=== PATIENT | female | born 1945 | race Caucasian/White ===

== ENCOUNTER → 2018-10-10 | Outpatient (CLI) | payer MEDICARE ==
--- NOTE | 2018-10-10 23:14 | CONS ---
CONSULTATION DATE OF SERVICE: 10/10/2018 73-year-old lady has been evaluated in [facility] for obstructive sleep apnea- hypopnea syndrome. HISTORY OF PRESENT ILLNESS SLEEP WAKE EVALUATION: The patient [place] Since that time, she is on treatment with CPAP and she tried to use it every night until about 1-1/2 months ago, her machine was broken. SLEEP SCHEDULE: Her sleep schedule presently from midnight until 8:00 am. Previously, she has had loud snoring, but she did lose 25 pounds of weight since your previous sleep study have been done. Results of previous sleep study is not available presently. Patient does not have any problem with falling asleep. No TV in bedroom. She sleeping by herself on back or side position usually through the night. No history of hypnagogic hallucinations, sleep paralysis or cataplexy. [place] Sleepiness Scale is 1. PAST MEDICAL HISTORY: Positive for hypothyroidism, hyperlipidemia. PAST SURGICAL HISTORY: Surgery for varicose veins on the left leg x2. Surgery for umbilical hernia and appendectomy. MEDICATIONS: 1. Atorvastatin. 2. Levothyroxine. 3. Triamterene. 4. Hydrochlorothiazide for swelling of the ankles. FAMILY HISTORY: Hypertension, heart problems, hyperlipidemia, arthritis, sleep apnea, snoring, diabetes, thyroid problems, mental illness. SOCIAL HISTORY: Positive for very minimal smoking socially in the past. Alcohol consumption occasionally. REVIEW OF SYSTEMS: Swelling of the legs, otherwise negative. PHYSICAL EXAM: lady without distress. BP 138/89, HR 82, RR 16, height 5 feet 6 inches, weight 174.4 pounds, body mass index 28.8, temperature 98.1, oxygen saturation at room air 98%. Oropharynx: Practically normal position of soft palate vertically but horizontally very close position of soft palate with the posterior pharyngeal wall. EXTREMITIES: 1+ bilateral ankle edema, more on the left side. Neck Supple, no JVD. Thyroid is not palpable. LUNGS Clear to percussion and to auscultation. Good air exchange. No wheezing or rhonchi. HEART S1, S2 regular. No murmurs, gallops, or rubs. ABDOMEN Soft and nontender. Bowel sounds are present. No organomegaly appreciated. MEDICAL OFFICE MANAGER Awake, alert, and oriented X3. Cranial nerves 2 to 7 intact. There is no fasciculation or atrophy. noted. No focal deficits observed. IMPRESSION: 1. Obstructive sleep apnea-hypopnea syndrome diagnosed 6 years ago in another institution in another state. Patient on treatment with CPAP since that time. Recently her CPAP equipment broken. She lost 25 pounds of weight since previous sleep studies and results of previous sleep studies are not available. 2. Hypothyroidism. 3. Hyperlipidemia. 4. History of varicose veins, problems of the left leg, status post 2 surgeries. 5. Status post umbilical hernia repair. 6. Status post appendectomy. PLAN: 1. Polysomnography for evaluation of patient's breathing during sleep. 2. CPAP/BiPAP titration if sleep study confirms obstructive sleep apnea-hypopnea syndrome. 3. Preferable position during sleep on the side. 4. No driving if patient feels any sleepiness. 5. I will see patient for follow up visit to explain results of testing and following plan. Thank you very much for referring this patient for consultation. Sincerely, Mega Shane MD, PhD, FAASM Diplomat of [employer] Slot Supervisor of [facility] [place] MMODL / UMAIRN: [id number] /
== END ==
LOC: SLEEP 15:05
PROVIDERS: ATTEND Internal Medicine
DX: G47.33 Obstructive sleep apnea (adult) (pediatric) (principal); E03.9 Hypothyroidism, unspecified; E78.5 Hyperlipidemia, unspecified; Z86.79 Personal history of other diseases of the circulatory system; Z98.890 Other specified postprocedural states; Z90.89 Acquired absence of other organs; Z99.89 Dependence on other enabling machines and devices; Z79.899 Other long term (current) drug therapy
CPT/HCPCS: 99211

== ENCOUNTER → 2019-05-22 | Outpatient (CLI) | payer MEDICARE ==
--- NOTE | 2019-05-22 19:53 | PN ---
PROGRESS NOTE DATE OF SERVICE: 05/22/2019 This patient is a 73-year-old lady who has been followed in Sleep Center for treatment of obstructive sleep apnea-hypopnea syndrome. Recently the patient had a home sleep apnea test which showed severe sleep apnea with apnea-hypopnea index 30.4 and oxygen desaturation to 82%. The patient had CPAP titration, and with titration her respiration fully normalized. Subsequently she received her CPAP unit. Today is her first visit after she started using her CPAP equipment. [place] Sleepiness Scale today is 1, which is perfect. I checked her CPAP unit. CPAP pressure is 8 cm of water. Usage is 100% of nights for more than 4 hours with average usage 8.4 hours per night. Leak is 16 L/minute, which is in normal range. Apnea-hypopnea index for the last month was 0.6, which is absolutely perfect. MEDICATIONS: 1. Atorvastatin. 2. Levothyroxine. 3. Triamterene. 4. Hydrochlorothiazide. PHYSICAL EXAMINATION: GENERAL: A pleasant patient in no distress. VITAL SIGNS: BP 115/74, HR 71, RR 16, weight 176, temperature 97.8, oxygen saturation at room air 98%. HEENT: PERRLA, EOMI. Evaluation of oropharynx showed tongue protrudes midline. NECK: Supple. No JVD. Thyroid is not palpable. LUNGS: Clear to percussion and to auscultation. Good air exchange. No wheezing or rhonchi. HEART: S1, S2 regular. No murmurs, gallops or rubs. ABDOMEN: Soft and nontender. Bowel sounds are present. No organomegaly. EXTREMITIES: No clubbing or cyanosis. CAR CARDER: Awake, alert, and oriented X3. Cranial nerves 2 to 7 intact. There is no fasciculation or atrophy. noted. No focal deficits observed. IMPRESSION: 1. Severe obstructive sleep apnea-hypopnea syndrome, under full control with CPAP. The patient demonstrated great compliance with treatment, benefitting from treatment. 2. Hypothyroidism. 3. Hyperlipidemia. 4. History of varicose veins, status post 2 surgeries on the left leg. 5. Status post umbilical hernia repair. 6. Status post appendectomy. PLAN: 1. Patient will continue to use CPAP equipment every night for the whole night. 2. Watching and losing weight. 3. Sleep hygiene with regular time in bed for at least 8 hours. 4. No driving if feeling any sleepiness. 5. I will maintain all necessary prescriptions for CPAP supplies, including mask, heated tube, filters. Thank you very much for allowing me to participate in the management of your patient. Sincerely, Mega Shane MD, PhD, FAASM Diplomat of [employer] Oscillograph Technician of [facility] [place] MMLEATHAL / JOSE EDUARDO: [id number] /
== END | disposition home or self-care (01) ==
LOC: SLEEP 14:55
PROVIDERS: ATTEND Internal Medicine
DX: G47.33 Obstructive sleep apnea (adult) (pediatric) (principal); E03.9 Hypothyroidism, unspecified; E78.5 Hyperlipidemia, unspecified; Z86.79 Personal history of other diseases of the circulatory system; Z98.890 Other specified postprocedural states; Z79.899 Other long term (current) drug therapy

== ENCOUNTER → 2021-09-15 | Outpatient (CLI) | payer MEDICARE ==
[2021-09-15 22:34] LABS: HCT 43.8 % (37.2-46.3); HGB 14.4 g/dL (12.0-15.0); MCH 31.6 pg (27.0-32.0); MCHC 32.9 g/dL (32.0-37.0); MCV 96.3 fL (80.0-97.0); Mean Platelet Volume 9.3 fL (9.5-12.2); Platelet Count 347 X 10*3/uL (140-440); RBC 4.55 X 10*6/uL (4.10-5.20); WBC 5.98 X 10*3/uL (4.50-10.00)
== END | disposition home or self-care (01) ==
LOC: LABPAT 13:54
PROVIDERS: ATTEND Surgery
DX: Z01.812 Encounter for preprocedural laboratory examination (principal); K43.9 Ventral hernia without obstruction or gangrene
CPT/HCPCS: 36415; 85027; 93005

== ENCOUNTER 2021-09-20 06:40 | Day surgery (SDC) | payer MEDICARE ==
[2021-09-13 16:46] VITALS: BMI 27.7
[~2021-09-20 06:40] MED LIST: ACETAMINOPHEN TAB 500 MG TAB PO PRN; DEXAMETHASONE SOD PHOSPHATE 4 MG/ML 1 ML VIAL IV ONE; HEPARIN SODIUM,PORCINE/PF 5,000 UNIT/0.5 ML SYRINGE SQ PRN; HYDROmorphone 0.5 MG/0.5 ML SYRINGE IVP PRN; LACTATED RINGERS 1,000 ML IV SCH; ONDANSETRON 4 MG/2 ML VIAL IVP ONE
[2021-09-20] MEDS ORDERED: BUPIVACAIN-EPI 0.25%-1:200,000 30 ML VIAL SQ ONE ×3 (07:17→08:13)
--- NOTE | 2021-09-20 07:35 | P.GSHP ---
History of Present Illness H&P Date: 09/20/21 Chief Complaint: Abdominal wall hernia 76-year-old female here today for elective repair bilateral lower abdominal wall hernia. Hernias are suspected to represent spigelian hernias based on recent CAT scan and physical exam findings. Right side larger than left. Mild pain at times. These have gradually been getting larger over the last year or more. Patient has a history of previous umbilical hernia in the past. Past Medical History Past Medical History: Hearing Disorder / Deafness, Hyperlipidemia, Hypertension, Sleep Apnea/CPAP/BIPAP, Thyroid Disorder Additional Past Medical History / Comment(s): R ear hearing loss. Hx HTN prior to wgt loss. Uses CPAP. Occ edema BLE, wears knee high Jobst socks. Recent UTI treated. History of Any Multi-Drug Resistant Organisms: None Reported Past Surgical History: Appendectomy, Hernia Repair, Orthopedic Surgery Additional Past Surgical History / Comment(s): Varicose vein surgery, Bilat Foot hammer toe surgery, Bilat feet bunionectomy. Umbilical hernia. Past Anesthesia/Blood Transfusion Reactions: No Reported Reaction Smoking Status: Former smoker - Past Family History Sister(s) Family Medical History: Cancer Additional Family Medical History / Comment(s): Breast cancer. Poss DVT, unsure? Medications and Allergies Home Medications Medication Instructions Recorded Confirmed Type Atorvastatin Calcium [Lipitor] 40 mg PO DAILY 06/24/14 09/20/21 History Levothyroxine Sodium [Synthroid] 50 mcg PO DAILY 06/24/14 09/20/21 History Allergies Allergy/AdvReac Type Severity Reaction Status Date / Time No Known Allergies Allergy Verified 09/20/21 06:59 Surgical - Exam Physical exam: General: Well-developed, well-nourished HEENT: Normocephalic, sclerae nonicteric Abdomen: Nontender, nondistended, bilateral lower abdominal wall hernia at the expected location of a spigelian hernia. Extremities: No edema Neuro: Alert and oriented Assessment and Plan (1) Spigelian hernia Narrative/Plan: 76-year-old female with lower abdominal wall hernias bilaterally. We'll proceed with laparoscopic da Marcelina assisted repair bilateral lower abdominal wall hernia with mesh, possible open. Risks of bleeding, infection, recurrence, bladder and bowel injury, numbness, nerve injury, conversion to an open procedure were discussed with the patient. The patient understands and wishes to proceed. Current Visit: Yes Status: Acute Code(s): K43.9 - VENTRAL HERNIA WITHOUT OBSTRUCTION OR GANGRENE SNOMED Code(s): 779022225
[2021-09-20 07:37] LABS: Glucose,Whole Blood 94 mg/dL (75-99)
[2021-09-20] MEDS ORDERED: PROPOFOL 10 MG/ML 20 ML VIAL IV ONE (07:40)
[2021-09-20] MEDS ORDERED: HYDROmorphone (PF) 1 MG/ML ONE (07:40)
[2021-09-20] MEDS ORDERED: NEOSTIGMINE 1 MG/ML 10 ML VIAL ONE (07:40)
[2021-09-20] MEDS ORDERED: SUCCINYLCHOLINE CHLORIDE 100 MG/5 ML SYR IV ONE (07:40)
[2021-09-20] MEDS ORDERED: POTASSIUM CHLORIDE ER 10 MEQ TAB.ER.PRT PO ONE (07:40)
[2021-09-20] MEDS ORDERED: MIDAZOLAM 2 MG/2 ML VIAL ONE (07:40)
[2021-09-20] MEDS ORDERED: LIDOCAINE 1% INJ 10MG/ML (20 ML MDV) ONE (07:40)
[2021-09-20] MEDS ORDERED: ROCURONIUM 10 MG/ML (5 ML VIAL) IV ONE (07:40)
[2021-09-20] MEDS ORDERED: GLYCOPYRROLATE 0.2 MG/ML 2 ML VIAL ONE (07:40)
[2021-09-20] MEDS ORDERED: LACTATED RINGERS 1,000 ML IV ONE (08:46)
--- NOTE | 2021-09-20 10:17 | P.OP ---
Date of Procedure: 09/20/21 Procedure(s) Performed: PREOPERATIVE DIAGNOSIS: Bilateral spigelian hernia POSTOPERATIVE DIAGNOSIS: Right spigelian hernia, left indirect inguinal hernia, abdominal adhesions PROCEDURE: Laparoscopic da Marcelina assisted repair right spigelian and left indirect inguinal hernia with mesh, lysis of adhesions SURGEON: Dr. Gomes ANESTHESIA: General OPERATIVE PROCEDURE DETAILS: Patient was placed in the operating table in the supine position. The patient was placed under general anesthesia. The abdomen was prepped and draped in usual sterile fashion. A 5 mm optical trocar was used to gain entrance into the peritoneal cavity in the left upper quadrant. Insufflation took place fully up to 15 mmHg. An additional 8 mm trocar was then placed in the right upper quadrant laterally and the epigastric region. The initial 5 was switched to an 8 mm trocar at that time. The robotic arms were then brought in and docked into place. The fenestrated bipolar was used in the left arm and the laparoscopic joni was utilized in the right arm.The patient had adhesions between the omentum and the abdominal wall that were lysed using sharp dissection. At that time I was able to visualize the abdominal cavity fully. The patient had an obvious right spigelian hernia. The hernia on the left-hand side however was more inferior and appeared initially system with a inguinal hernia. I decided to address the inguinal hernia first. A curvilinear incision was made on the peritoneum superior to the defect. Following that careful dissection of the preperitoneal space took place. This took place using both electrocautery, sharp dissection but primarily blunt dissection. Visualization of the pubic tubercle and Baljinder's ligament took place medially. Full dissection took place laterally as well. The hernia sac was fully dissected. Again this was a indirect inguinal hernia. Once we had adequate space the extra-large Bard 3-D mid mesh was advanced into the preperitoneal space and flattened out appropriately to cover all potential hernia sites. No sutures were used. The peritoneal defect was then closed using a absorbable 2-0 VLok suture. The hernia sac was incorporated into the peritoneal closure to help prevent future recurrence. The spigelian hernia was then addressed. I decided I had enough peritoneum to perform our repair in the preperitoneal space. The peritoneum was incised and bluntly dissected circumferentially around the hernia. The hernia sac was fully dissected out of the defect. The size of the fascial defect here was approximately 1.5 x 2 cm. This was closed using a running #1 nonabsorbable strata fixed suture. The 4.5 inch circular ventral light mesh was then utilized. Using our suture that we used to close the fascia I used this to suture the mesh to the abdominal wall centrally at the fascial repair. The mesh was then able to be flattened out in the preperitoneal space properly. No further sutures were used. The peritoneum was then closed using a running 20V lock absorbable suture. The mesh was fully covered. The 3 needles were then removed. Pneumoperitoneum was evacuated. Trochars were removed. Skin incisions closed using 4-0 Monocryl subcuticular sutures. Skin glue was then applied. PREOPERATIVE DISCUSSION ON SMOKING CESSASTION: Yes PREOPERATIVE DISCUSSION ON MORBID OBESITY: Yes PREOPERATIVE DISCUSSION ON APPROPRIATE USE OF NARCOTIC USE: Yes TYPE OF MESH USED: Bard 3-D max MID anatomical mesh extra-large left, 4.[address] for spigelian hernia LOCATION OF MESH: Preperitoneal FIXATION: None for inguinal, #1 strata fix for spigelian DISPOSITION: Stable to recovery room
[2021-09-20 10:30] VITALS: TEMP 97
[2021-09-20 10:32] VITALS: RESP 16
[2021-09-20] MEDS ORDERED: SODIUM CHLORIDE 0.9% 1,000 ML IV ONE ×2 (10:48)
[2021-09-20 12:11] VITALS: BP 146/88; PULSE 57
[2021-09-20] MEDS ORDERED: ACETAMINOPHEN TAB 325 MG TAB PO SCH (13:00)
[2021-09-20] MEDS ORDERED: IBUPROFEN 600 MG TAB PO SCH (16:00)
== END 2021-09-20 13:28 | disposition home or self-care (01) ==
LOC: OR 06:40
PROVIDERS: ATTEND Surgery
DX: K43.9 Ventral hernia without obstruction or gangrene (principal); K66.0 Peritoneal adhesions (postprocedural) (postinfection); K40.90 Unilateral inguinal hernia, without obstruction or gangrene, not specified as recurrent; E78.5 Hyperlipidemia, unspecified; I10 Essential (primary) hypertension
CPT/HCPCS: 49329; 49650; S2900

== ENCOUNTER → 2024-07-11 | Outpatient (CLI) | payer MEDICARE ==
--- NOTE | 2024-07-12 00:01 | NM ---
EXAMINATION TYPE: NM DatScan Brain SPECT DATE OF EXAM: 07/11/2024 COMPARISON: NONE CLINICAL INDICATION: Female, 78 years old with history of R25.1 TREMOR, UNSPECIFIED; TECHNIQUE: 10 drops of Lugol's solution was administered 1 hour prior to injection as a thyroid bloc donell agent. After the administration of 4.95 mCi I-123 Ioflupane DaTscan. Images obtained 3 hours p ost injection. SPECT images of the brain were acquired with axial and coronal reconstructions. FINDINGS: The DaTSCAN demonstrates balanced striatal loss to the putamina nucleii in the striata. This appearance is consistent with the loss of the pre-synaptic dopaminergic terminals. IMPRESSION: This abnormal appearance is supportive of a clinical diagnosis of DLB, idiopathic PD, Parkinson?s de mentia complex, or PS. [facility], , 07/11/2024 11:59 PM
== END | disposition home or self-care (01) ==
LOC: RADNMMAIN 09:07
PROVIDERS: ATTEND Psychiatry & Neurology Neurology
DX: G20.A1 Parkinson's disease without dyskinesia, without mention of fluctuations (principal)
CPT/HCPCS: 78803; A9584

== ENCOUNTER → 2025-01-02 | Outpatient (CLI) | payer MEDICARE ==
--- NOTE | 2025-01-02 15:02 | BD ---
EXAMINATION TYPE: Axial Bone Density DATE OF EXAM: 01/02/2025 CLINICAL HISTORY: 79 years old Female. ICD-10 CODE: M85.9 DISORDER OF BONE DENSITY , Additional Hist ory: Height: 66 Weight: 179.9 FRAX RISK QUESTIONS: Alcohol (3 or more units per day): no Family History (Parent hip fracture): no Glucocorticoids (More than 3mos): no (Ex: prednisone, prednisolone, methylprednisolone, dexamethasone, and hydrocortisone). History of Fracture in Adulthood: no Secondary Osteoporosis: 1. Type 1 Diabetes: no 2. Hyperthyroidism: no 3. Menopause before 45: no 4. Malnutrition: no 5. Chronic liver disease: no Rheumatoid Arthritis: no Current Tobacco Use: no RISK FACTORS HISTORY OF: Surgery to Spine/Hip(right/left)/Wrist (right/left): no MEDICATIONS: Thyroid Medications: synthroid How Lon + years Osteoporosis Medications: yes How Lon years EXAM MEASUREMENTS: Bone mineral densitometry was performed using the Self Point System. Bone mineral density as measured about the Lumbar spine is: ----- L1-L4(G/cm2): 1.205 T Score Values are as follows: ----- L1: -0.9 ----- L2: 0.0 ----- L3: 0.8 ----- L4: 0.6 ----- L1-L4: 0.2 Z Score Values are as follows: ----- L1: 0.3 ----- L2: 1.3 ----- L3: 2.1 ----- L4: 1.8 ----- L1-L4: 1.5 Bone mineral density : baseline Bone mineral density about the R hip (g/cm2): 0.843 Bone mineral density about the L hip (g/cm2): 0.823 T Score values are as follows: -----R Neck: -0.6 -----L Neck: -2.3 -----R Total: -1.3 -----L Total: -1.5 Z Score values are as follows: -----R Neck: 1.2 -----L Neck: -0.5 -----R Total: 0.3 -----L Total: 0.1 Bone mineral density : baseline FRAX%s: The graph provided illustrates a 17.0% chance for a major osteoporotic fx and a 5.4% chance f or the hips probability for fx in 10 years time. IMPRESSION: Osteopenia (T Score between -2.5 and -1). There is slightly increased risk of fracture and the patient may be considered for treatment. Re-Screen 2-5 years. NOTE: T-SCORE=SD OF THE YOUNG ADULT MEAN. [facility], , 01/02/2025 2:59 PM
--- NOTE | 2025-01-06 11:49 | MM ---
Reason for Exam: Screening (asymptomatic). Last screening mammogram was performed 10 month(s) ago. Patient History: 01/03/2000, Benign MG stereo VAD BX RT on the right side. 01/02/2010, Benign MG stereo VAD BX LT - 2 on the left side. Sister had breast cancer, age 68. Risk Values: Kristen 5 year model risk: 4.3%. NCI Lifetime model risk: 7.1%. Prior Study Comparison: 12/05/2022 Bilateral Screening Mammogram, [facility]. 02/27/2024 Bilateral Screening Mammogram, [facility]. Tissue Density: There are scattered areas of fibroglandular density. Findings: Analyzed By CAD. Bilateral breast biopsy clips. Right breast: There is no suspicious group of microcalcifications or new suspicious mass. Left breast: There is no suspicious group of microcalcifications or new suspicious mass. Overall Assessment: Benign, BI-RAD 2 Management: Screening Mammogram of both breasts in [address] [facility] will attempt to contact patient to return for supplemental views and ultrasound if indicated. Patient should continue monthly self-breast exams. A clinical breast exam by your physician is recommended on an annual basis. This exam should not preclude additional follow-up of suspicious palpable abnormalities. Note on Kristen scores and lifetime risk: 1. A Kristen score greater than 3% is considered moderate risk. If this is the case, consider specialist referral to assess eligibility for a risk reducing agent. 2. If overall lifetime risk for the development of breast cancer is 20% or higher, the patient may qualify for future screening with alternating mammogram and breast MRI. [facility], , 01/06/2025 9:46 AM. Electronically signed and approved by: Jordon Garcia DO
== END | disposition home or self-care (01) ==
LOC: RADBDWWP 14:01
PROVIDERS: ATTEND Family Medicine
DX: R92.8 Other abnormal and inconclusive findings on diagnostic imaging of breast (principal); R92.323 Mammographic fibroglandular density, bilateral breasts; M85.89 Other specified disorders of bone density and structure, multiple sites; Z80.3 Family history of malignant neoplasm of breast
CPT/HCPCS: 77063; 77067; 77080